=== PATIENT | female | born 1975 | race Caucasian/White ===

== ENCOUNTER 2019-05-13 11:16 | Outpatient (CLI) | payer OTHER, SELFPAY ==
--- NOTE | ~2019-05-13 | MMUS_ITS ---
EXAMINATION: MM diagnostic wandy BI w dhiraj, US axilla RT HISTORY: Palpable right breast lump TECHNIQUE: Additional 3-D tomosynthesis images of the breasts were performed and synthetic 2-D images were generated. CAD analysis was submitted and interpreted. High resolution right breast ultrasound was performed. COMPARISON: Comparison to multiple prior studies sequentially, with oldest reviewed study dated 08/08. FINDINGS: MAMMOGRAPHIC FINDINGS: The breasts are extremely dense, which lowers the sensitivity of mammography. No suspicious masses, c alcifications or architectural distortion in either breast to suggest malignancy. ULTRASOUND: Right axillary ultrasound: Normal heterogeneous echotexture without focal solid or cystic mass. IMPRESSION: 1. No evidence for malignancy in either breast. 2. Routine yearly screening mammogram and regular clinical breast examination are recommended. BI-RADS Category 1: Negative Reviewed, dictated and finalized at location A. IMPRESSION: 1. No evidence for malignancy in either breast. 2. Routine yearly screening mammogram and regular clinical breast examination a re recommended. BI-RADS Category 1: Negative
== END 2019-05-13 11:17 | disposition home or self-care (01) ==
LOC: ANHIMG 11:25
PROVIDERS: PCP Internal Medicine; Visit Provider Advanced Practice Midwife
DX: R59.0 Localized enlarged lymph nodes (principal)
CPT/HCPCS: 76882; 77062; 77066; G0279

== ENCOUNTER 2019-11-18 13:28 | Emergency (ER) | payer OTHER, SELFPAY ==
--- NOTE | ~2019-11-18 | CT_ITS ---
EXAMINATION: CT cervical spine wo con EXAM DATE: 11/18/2019 14:24 INDICATION: Initial encounter following injury, with pain of the cervical spine. TECHNIQUE: Spiral CT of the cervical spine was performed without contrast. Axial images were reviewe d. Coronal and sagittal reformatted images were also reviewed. The dose-length product (DLP) for thi s examination was 206.31 mGy-cm. The exposure was tailored according to patient size (auto mA exposu re control), and iterative reconstruction (ASIR) was used as additional dose reduction technique. ere is no prior study for comparison. FINDINGS: Congenital C1 posterior arch incomplete fusion. There is no evidence of acute cervical frac ture. The odontoid process is intact. Pre-dens space is normal. Prevertebral soft tissue is normal . There are no soft tissue abnormalities identified. There is no disc space widening or traumatic v ertebral body subluxation suspected. There is mild to moderate C5-6 and 6-7 disc disease and arthrop athy. The vertebral body and disc heights are otherwise well maintained. A detailed level by level e valuation of spondylosis can be added as addendum if requested. IMPRESSION: 1. No acute cervical fracture. 2. Mild to moderate lower cervical spondylosis. Reviewed, dictated and finalized at location B.
[2019-11-18 13:42] VITALS: BP 129/70; PULSE 81; RESP 18; TEMP 36.9; O2SAT 100
[2019-11-18 15:41] VITALS: BP 116/66; PULSE 70; RESP 16; TEMP 37.3; O2SAT 98
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
== END 2019-11-18 15:41 | disposition home or self-care (01) ==
PROVIDERS: Emergency Provider Emergency Medicine
DX: S16.1XXA Strain of muscle, fascia and tendon at neck level, initial encounter (principal); M47.812 Spondylosis without myelopathy or radiculopathy, cervical region; V43.52XA Car driver injured in collision with other type car in traffic accident, initial encounter
CPT/HCPCS: 72125; 81025; 99284; L0140

== ENCOUNTER 2020-04-15 10:04 | Emergency (ER) | payer OTHER, SELFPAY ==
[2020-04-15] VITALS (10 sets, daily range): BP systolic 130–150; BP diastolic 80–86; PULSE 82–90; RESP 11–19; TEMP 37.1; O2SAT 97–100
--- NOTE | 2020-04-15 10:18 | ECG_ITS ---
Measurements Intervals [place] Rate: 87 P: 81 NH: 142 QRS: 60 QRSD: 98 T: 20 QT: 362 QTc: 436 Interpretive Statements SINUS RHYTHM POSSIBLE LEFT ATRIAL ENLARGEMENT INCOMPLETE RIGHT BUNDLE BRANCH BLOCK BORDERLINE ST-T WAVE ABNORMALITY- ANT/INF LEADS BASELINE ARTIFACT- I, II, III, V4 BORDERLINE ECG Electronically Signed On 04-15-2020 10:30:25 FORMULA TECHNICIAN by Sean Russo D.O.
[2020-04-15] MEDS: SODIUM CHLORIDE 0.9% IV 1,000 ML 999 ML IV CONT (10:44)
[2020-04-15 10:57] LABS: Basophils Absolute Auto 0.1 K/mm3 (0.0-0.1); Basophils Percent Auto 0.9 % (0.2-1.2); Eosinophils Absolute Auto 0.3 K/mm3 (0-0.3); Eosinophils Percent Auto 3.7 % (0-4.4); Hematocrit 39.5 % (37.0-47.0); Hemoglobin 13.3 g/dL (12.0-15.0); Immature Granulocyte Absolute 0.01 K/mm3 (0.00-0.031); Immature Granulocyte Percent A 0.1 % (0-0.5); Lymphocytes Absolute Auto 1.27 K/mm3 (0.9-3.2); Mean Corpuscular HGB Conc 33.7 g/dl (32-36); Mean Corpuscular Hemoglobin 30.4 pg (26-34); Mean Corpuscular Volume 90.4 fl (80-100); Mean Platelet Volume 10.8 fl (7.4-10.4); Monocytes Absolute Auto 0.5 K/mm3 (0.1-0.6); Monocytes Percent Auto 6.8 % (2.6-8.5); Neutrophils Percent Auto 70.5 % (45.5-73.1); Platelet Count Result 250 k/mm3 (150-375); Red Blood Count 4.37 M/mm3 (4.2-5.4); Red Cell Distribution Width 12.3 % (11.5-14.5)
[2020-04-15 11:03] LABS: Add Urine Microscopic? YES; Appearance Urine Clear (Clear); Bilirubin Urine Negative (Negative); Blood Urine 2+ (Negative); Color Urine Straw (Yellow); Glucose Urine UA Negative (Negative); Ketones Urine Negative (Negative); Leukocyte Esterase Ur Negative LEU/UL (Negative); Nitrate Urine Negative (Negative); Protein Urine Negative (Negative); RBC Urine 0-2 /hpf (0-2); Specific Grav Ur 1.006 (1.001-1.035); Squamous Epithelial Cell Urine Few /hpf (Few); Transitional Epi Cells Urine Rare /hpf (None Seen); Urobilinogen Urine Negative mg/dL (<2.0)
[2020-04-15 11:06] LABS: Prothrombin Time 13.5 Seconds (11.1-14.7)
[2020-04-15 11:07] LABS: Partial Thromboplastin Time 28.1 SECONDS (22.3-36.8)
[2020-04-15 11:08] LABS: Alanine Aminotransferase 16 U/L (4-35); Albumin Level 4.2 g/dL (3.5-5.1); Alkaline Phosphatase 56 U/L (38-126); Anion Gap 6 mmol/L (8-16); Aspartate Amino Transferase 25 U/L (14-36); Bilirubin,Total 0.4 mg/dL (0.2-1.3); Blood Urea Nitrogen 12 mg/dL (7-17); Calcium 8.8 mg/dL (8.4-10.2); Carbon Dioxide 29 mmol/L (22-30); Chloride 105 mmol/L (98-107); Estimated CRCL calculation 74 ml/min; Estimated Glomerular Filt Rate > 60; Glucose 95 mg/dL (65-105); Potassium 3.5 mmol/L (3.4-5.0); Sodium 140 mmol/L (137-145)
--- NOTE | 2020-04-15 11:23 | ED.GENADULT ---
HPI - General Adult General Chief complaint: Arrhythmia/Palpitations Stated complaint: Palpatations Time Seen by Provider: 04/15/20 10:15 Source: patient Mode of arrival: ambulatory Limitations: no limitations History of Present Illness HPI narrative: Patient is a 44-year-old female who presented with an episode of feeling near syncopal pulled over felt like her heart was racing has history of V. tach is on medication for this specialists or outside at [facility] in [place] patient on arrival per EMS noting she is feeling much better patient notes that she did take migraine medication with caffeine in it this morning as a possible etiology became anxious and is also being treated for urinary tract infection. Patient on arrival is in no distress hemodynamically stable Related Data Home Medications Medication Instructions Recorded Confirmed diltiazem HCl 180 mg PO DAILY 11/18/19 11/18/19 cephalexin 500 mg PO Q8H 04/15/20 Allergies Allergy/AdvReac Type Severity Reaction Status Date / Time Sulfa (Sulfonamide Allergy Mild RASH Verified 04/15/20 10:12 Antibiotics) Review of Systems Review of Systems: All systems reviewed & are unremarkable except as noted in HPI and below PMFSH Past Medical History Medical History Hypertension Social History Social History Smoking status: Never smoker Gender identity (if verbalized by the patient): Female Exam Narrative: Exam Narrative: GENERAL: Well-appearing, well-nourished, and in no acute distress. HEAD: Normocephalic, atraumatic. EYES: PERRLA and EOMI. ENT: Nares clear, no rhinorrhea or epistaxis. Mucous membranes moist. CHEST: Clear to auscultation. No respiratory distress. No wheezes rales or rhonchi HEART: Regular rate and rhythm. No murmur heard. Normal peripheral pulses. ABDOMEN: Soft, mild epigastric tenderness on palpation no rebound or guarding, nondistended EXTREMITIES: Normal range of motion. No edema. SKIN: Warm, dry, no rash. NEURO: No focal deficits. Alert and oriented x3. Cranial nerves II through XII grossly intact PSYCH: Normal mood and affect. Course Course Emergency Course: Patient in the room in no distress aware of case findings treatment plan and diagnosis resting comfortably no high risk changes in the blood work or evaluation likely due to stimulant use with her Excedrin Migraine medication will discontinue using this and will follow up as instructed and will return if symptoms worsen Vital Signs Vital signs: Vital Signs Temperature 98.7 F 04/15/20 10:07 Pulse Rate 84 04/15/20 10:07 Respiratory Rate 16 04/15/20 10:07 Blood Pressure 130/85 04/15/20 10:07 Pulse Oximetry 100 04/15/20 10:07 Temperature 98.7 F 04/15/20 10:07 Pulse Rate 84 04/15/20 12:01 Respiratory Rate 19 04/15/20 12:01 Blood Pressure 135/86 04/15/20 12:01 Pulse Oximetry 98 04/15/20 12:01 Medical Decision Making Differential Diagnosis Differential Diagnosis: Patients EKGs and labs are without significant high risk changes. Cardiac risk factors were reviewed. Patient is felt likely to be low risk for ACS and reasonable for further risk stratification testing as an outpatient. Pain was not sudden or maximal in onset without tearing or ripping. quality. No other signs or symptoms to suggest aortic dissection. A low-risk Wells criteria is noted. PE is felt to be unlikely. No pneumonia or URI symptoms were seen on evaluation today. Patient is felt to be reasonable for continued evaluation as an outpatient. Vital Signs Vital Signs: Vital Signs Temperature 98.7 F 04/15/20 10:07 Pulse Rate 84 04/15/20 10:07 Respiratory Rate 16 04/15/20 10:07 Blood Pressure 130/85 04/15/20 10:07 Pulse Oximetry 100 04/15/20 10:07 Temperature 98.7 F 04/15/20 10:07 Pulse Rate 84 04/15/20 12:01 Respiratory Rate 19
[2020-04-15 11:54] LABS: Troponin I < 0.012 ng/mL (0.000-0.034)
== END 2020-04-15 12:52 | disposition home or self-care (01) ==
PROVIDERS: Emergency Medicine Emergency Medical Services; Emergency Provider Emergency Medicine
DX: R00.2 Palpitations (principal); I10 Essential (primary) hypertension
CPT/HCPCS: 36415; 80053; 81001; 84484; 85025; 85610; 85730; 93005; 96360; 96361; 99284; J7030

== ENCOUNTER 2020-07-30 16:52 | Emergency (ER) | payer OTHER, SELFPAY ==
[2020-07-30 16:59] VITALS: BP 124/68; PULSE 81; RESP 18; TEMP 37.4; O2SAT 99
--- NOTE | 2020-07-30 18:30 | ED.FEMALEGU ---
HPI - Female Genitourinary General Chief complaint: Urogenital-Female Stated complaint: UTI SYMPTOMS Time Seen by Provider: 07/30/20 17:07 Source: patient and RN notes reviewed Mode of arrival: ambulatory Limitations: no limitations History of Present Illness HPI Narrative: Patient presents today complaining of constant lower abdominal aching and a pinching sensation at her urethra. Symptoms have been present for over 1 week. Symptoms were improved while she was on her menstrual cycle during this period of time. Denies frequency, dysuria, low back pain, decreased urine output, hematuria. States this is the third episode similar to this that she has had. The first time was at the beginning of the pandemic, her urine was not tested at this time, but wished she was given a course of antibiotics for presumed UTI. States this did help with her symptoms. States she cannot remember what was done during the second episode of the symptoms. MD elicited complaint: pelvic pain Related Data Home Medications Medication Instructions Recorded Confirmed diltiazem HCl 180 mg PO DAILY 11/18/19 07/30/20 Allergies Allergy/AdvReac Type Severity Reaction Status Date / Time Sulfa (Sulfonamide Allergy Mild RASH Verified 07/30/20 17:12 Antibiotics) Review of Systems Review of Systems: Narrative: CONSTITUTIONAL: Denies body aches, fever, chills, or sweats. EYES: Denies visual changes, redness, or discharge. ENT: Denies rhinorrhea, congestion, sore throat, or otalgia. CARDIOVASCULAR: Denies chest pain, palpitations, or edema. RESPIRATORY: Denies cough or dyspnea. GASTROINTESTINAL: Denies abdominal pain, nausea, vomiting, or diarrhea. GENITOURINARY: Denies dysuria or hematuria.+ Pelvic pain, urethral irritation SKIN: Denies rash, itching, or wounds. MUSCULOSKELETAL: Denies back pain, joint pain, or myalgia. NEUROLOGIC: Denies headache, numbness, tingling, or weakness. PSYCH: Denies depression or anxiety. [facility] Past Medical History Medical History (Updated 07/30/20 @ 18:34 by Sabina Robert, DISULFURIZER TENDER, ) History of ventricular tachycardia Hypertension Social History Social History Smoking status: Never smoker Gender identity (if verbalized by the patient): Female Comments At time of signature, I have reviewed and agree with nursing past medical, surgical, social and family history unless otherwise noted. Please see nursing chart for further information. There is no relevant family history pertinent to the presenting complaint Exam Narrative: Exam Narrative: GENERAL: Well-appearing, well-nourished, and in no acute distress. HEAD: Normocephalic, atraumatic. EYES: EOMI. No redness or drainage. Conjunctivae normal. ENT: Mucous membranes pink and moist. NECK: Normal AROM. CHEST: No respiratory distress. Clear to auscultation. HEART: Regular rate and rhythm. No murmur appreciated. Normal peripheral pulses. ABDOMEN: Soft, nondistended, normal active bowel sounds. + Suprapubic tenderness.-CVAT MUSCULOSKELETAL: No bony tenderness. EXTREMITIES: Normal range of motion. No edema. SKIN: Warm, dry, no rash. Capillary refill normal. Normal skin turgor. NEURO: No focal deficits. Alert and oriented x3. Gait steady. PSYCH: Normal affect. No signs of depression or anxiety. Course Course Emergency Course: Patient just got off her menstrual cycle and has trace amount of blood in her UA, but no other inflammatory markers for UTI. Symptoms have been present for over a week and improved when she was on her menstrual cycle. This could suggest another problem other than a UTI. I will send her urine off for culture and we will contact her if it comes back positive, and antibiotics will be called in for her at that time if needed. Discussed follow-up with an PIPELINE INTEGRITY ENGINEER, and patient is agreeable to this plan. Vital Signs Vital signs: Vital Signs Temperature 99.3 F 07/30/20 16:59 Puls
== END 2020-07-30 17:25 | disposition home or self-care (01) ==
PROVIDERS: Emergency Provider Nurse Practitioner
DX: R10.31 Right lower quadrant pain (principal); R10.32 Left lower quadrant pain; I10 Essential (primary) hypertension
CPT/HCPCS: 81003; 87086; 99213; G0463

== ENCOUNTER 2021-02-04 07:45 | Outpatient (CLI) | payer OTHER, SELFPAY ==
--- NOTE | ~2021-02-04 | MM_ITS ---
EXAMINATION: MM screening wandy BI w dhiraj HISTORY: Screening TECHNIQUE: Craniocaudal and mediolateral oblique 3-D tomosynthesis images were obtained and synthetic 2-D images were generated. CAD analysis was submitted and interpreted. COMPARISON: Comparison to multiple prior studies sequentially, with oldest reviewed study dated [place] rison to multiple prior studies sequentially, with oldest reviewed study dated 08/08/2018. . BREAST PARENCHYMAL COMPOSITION: The breasts are heterogenously dense, which may obscure small masses FINDINGS: There is no evidence of suspicious mass, calcification, or architectural distortion to sugg est malignancy in either breast. There has been no suspicious interval change. IMPRESSION: 1. No mammographic evidence of malignancy. 2. Recommend routine screening mammography in one year. BI-RADS Category 1: Negative Reviewed, dictated and finalized at location A. TO DOOR SALES REPRESENTATIVE
== END 2021-02-04 07:46 | disposition home or self-care (01) ==
LOC: ANHIMG 07:48
PROVIDERS: PCP Internal Medicine; Visit Provider Advanced Practice Midwife
DX: Z12.31 Encounter for screening mammogram for malignant neoplasm of breast (principal)
CPT/HCPCS: 77063; 77067

== ENCOUNTER 2021-10-11 16:49 | Emergency (ER) | payer OTHER, SELFPAY ==
[2021-10-11 17:01] VITALS: BP 129/80; PULSE 75; RESP 16; TEMP 37.6; O2SAT 98
--- NOTE | 2021-10-11 17:48 | ED.FEMALEGU ---
HPI - Female Genitourinary General Chief complaint: Urogenital-Female Stated complaint: bladder infection Time Seen by Provider: 10/11/21 17:49 Source: patient, RN notes reviewed and old records reviewed Mode of arrival: ambulatory Limitations: no limitations History of Present Illness HPI Narrative: 46 year old female who presents to [facility] care with complaints of some suprapubic cramping since Sunday with twinge of discomfort with voiding with no frequency or urgency reported. Patient also states history of urine fibroids pushing on her bladder wonders if discomfort could be related. Patient reports that on Sunday she had headache, sore throat, low grade fevers, cough, and fatigue and spent most of weekend in bed, tested self for COVID twice both times negative with last test Sunday.Patient reports that those symptoms have improved since Sunday. Patient has used heating pad to her lower abdomen area but has not taken any OTC medications. MD elicited complaint: dysuria and other (supra pubic pressure, URI symptoms also) Pertinent past history: other (uterine fibroids) Onset (ago): day(s) (1) Location of symptoms: suprapubic Severity: mild Female Urogenital Radiation: Non-Radiating Severity scale (1-10): 2 Related Data Home Medications Medication Instructions Recorded Confirmed diltiazem HCl 180 mg 180 mg PO DAILY 11/18/19 10/11/21 capsule,extended release 24 hr Allergies Allergy/AdvReac Type Severity Reaction Status Date / Time Sulfa (Sulfonamide Allergy Mild RASH Verified 07/30/20 17:12 Antibiotics) Review of Systems Review of Systems: CONSTITUTIONAL: Positive for low grade fever, chills, or sweats. EYES: Denies visual changes, redness, or discharge. ENT: Positive rhinorrhea, minimal congestion, sore throat resolved, no otalgia. CARDIOVASCULAR: Denies chest pain, palpitations, or edema. RESPIRATORY: Occasional cough denies dyspnea. GASTROINTESTINAL: suprapubic pressure with twinge of discomfort with urination reported,no nausea, vomiting, or diarrhea.No CVA tenderness GENITOURINARY: twinge of dysuria no visible hematuria. SKIN: Denies rash or itching. MUSCULOSKELETAL: Denies back pain, joint pain, or myalgia. NEUROLOGIC: Denies headache, numbness, or weakness. PSYCHIATRIC: Denies anxiety or depression. All systems reviewed & are unremarkable except as noted in HPI and below PMFSH Past Medical History Medical History (Updated 10/11/21 @ 18:24 by Erma De Leon NP) History of ventricular tachycardia Hypertension Uterine fibroid Surgical History Surgical History (Updated 10/11/21 @ 18:23 by Erma De Leon NP) History of cardiac radiofrequency ablation Social History Social History (Updated 10/11/21 @ 18:23 by Erma De Leon NP) Smoking status: Never smoker Alcohol intake: current Alcohol use details: rare Substance use type: does not use Living arrangements: with family Gender identity (if verbalized by the patient): Female Comments At time of signature, agree with nursing past medical, surgical, social and family history. There is no relevant family history pertinent to the presenting complaint Exam Narrative: GENERAL: Well-appearing, well-nourished, and in no acute distress. HEAD: Normocephalic, atraumatic. EYES: PERRLA and EOMI. ENT: Nares clear, minimal clear rhinorrhea no epistaxis. Mucous membranes moist.TM's normal with good light reflex, throat pink with no lesions or exudates or tonsil swelling. NECK: Supple.no lymphadenopathy CHEST: Clear to auscultation. No respiratory distress. SAO2 98% on room air HEART: Regular rate and rhythm. No murmur heard. Normal peripheral pulses. ABDOMEN: Soft,suprapubic tenderness,minimal discomfort when urinates no hematuria, nondistended, normal active bowel sounds.No CVA tenderness EXTREMITIES: Normal range of motion. No edema. SKIN: Warm, dry, no rash. NEURO: No focal deficits. Alert and oriented x3. Course Cour
== END 2021-10-11 18:09 | disposition home or self-care (01) ==
LOC: EXPGOSH 16:52
PROVIDERS: Emergency Provider Registered Nurse
DX: N30.90 Cystitis, unspecified without hematuria (principal); I10 Essential (primary) hypertension
CPT/HCPCS: 81003; 87086; 99213; G0463

== ENCOUNTER 2022-04-10 10:23 | Emergency (ER) | payer OTHER, SELFPAY ==
--- NOTE | 2022-04-10 10:26 | ED.EAR ---
HPI - Ear Problem General Chief complaint: Ear Stated complaint: congestion, rt ear pain/drainage Time Seen by Provider: 04/10/22 10:26 Source: patient Mode of arrival: ambulatory Limitations: no limitations History of Present Illness HPI Narrative: Susana is a 46-year-old female patient presenting to clinic today with complaints nasal congestion and right ear pain since the beginning of March. She reports she is getting over COVID. States that she tested last week and was finally started test negative. Still has head congestion, ear pressure, and nonproductive barking cough. Nasal congestion is clear. No fever or chills recently. Related Data Home Medications Medication Instructions Recorded Confirmed diltiazem HCl 180 mg 180 mg PO DAILY 11/18/19 04/10/22 capsule,extended release 24 hr Allergies Allergy/AdvReac Type Severity Reaction Status Date / Time Sulfa (Sulfonamide Allergy Mild RASH Verified 04/10/22 10:30 Antibiotics) Review of Systems Review of Systems: Pertinent positives per HPI. Patient denies any fever, chills, rash, headache, visual changes, dizziness, shortness of breath, chest pain, palpitations, nausea, vomiting, diarrhea, constipation, abdominal pain, or any urinary issues. PMFSH Past Medical History Medical History History of ventricular tachycardia Hypertension Uterine fibroid Surgical History Surgical History History of cardiac radiofrequency ablation Social History Social History Smoking status: Never smoker Alcohol intake: current Alcohol use details: rare Substance use type: does not use Living arrangements: with family Gender identity (if verbalized by the patient): Female Comments At the time of my signature, I reviewed and agree with the nursing past medical, surgical, social, and family history. There is no relevant family history pertinent to the patient complaint. Exam Narrative: General: Well-developed, well nourished, in no apparent distress Head: Normocephalic, atraumatic Eyes: Pupils equally round and reactive to light bilaterally, EOM intact, sclera and conjunctive clear, no discharge, lids normal Ears: TMs intact and clear, ear canals clear, no drainage, grossly hearing normal. Nose: Nares patent, no discharge, no inflammation, no sinus tenderness. Mouth: Oral pharynx without lesions or masses, good dentition, MMM. Neck: Supple, trachea midline, no enlargement of anterior or posterior cervical nodes, no thyroid masses or goiter palpable. Cardio: Regular rate and rhythm, s1 and s2 normal, no murmur appreciated. Resp: Clear to auscultation bilaterally, no rhonchi, rales, wheezing or rubs Course Course Emergency Course: Portions of this record may have been created with voice recognition software. Level of Care: Express Care Visit Vital Signs Vital signs: Vital Signs Temperature 37.3 C 04/10/22 10:32 Pulse Rate 85 04/10/22 10:32 Respiratory Rate 16 04/10/22 10:32 Blood Pressure 128/79 04/10/22 10:32 Pulse Oximetry 99 04/10/22 10:32 Temperature 37.3 C 04/10/22 10:32 Pulse Rate 85 04/10/22 10:32 Respiratory Rate 16 04/10/22 10:32 Blood Pressure 128/79 04/10/22 10:32 Pulse Oximetry 99 04/10/22 10:32 Vital signs reviewed Medical Decision Making MDM Narrative Medical decision making narrative: At the time of visit patient is resting comfortably on exam table. Patient is just getting over COVID. I suspect patient has URI/postnasal drip/eustachian tube dysfunction. Prescription for prednisone was sent to the pharmacy and supportive measures were discussed with the patient she voiced understanding discharge instructions. Differential Diagnosis Differential Diagnosis: Otitis media, otitis tender, eustachian
[2022-04-10 10:32] VITALS: BP 128/79; PULSE 85; RESP 16; TEMP 37.3; O2SAT 99
== END 2022-04-10 10:45 | disposition home or self-care (01) ==
PROVIDERS: Emergency Provider Nurse Practitioner Family
DX: H69.93 Unspecified Eustachian tube disorder, bilateral (principal); J06.9 Acute upper respiratory infection, unspecified; R09.82 Postnasal drip; I10 Essential (primary) hypertension; Z86.16 Personal history of COVID-19
CPT/HCPCS: 99213; G0463

== ENCOUNTER 2022-06-23 08:12 | Outpatient (CLI) | payer OTHER, SELFPAY ==
--- NOTE | ~2022-06-23 | MM_ITS ---
EXAMINATION: MM screening wandy BI w dhiraj HISTORY: Screening mammogram TECHNIQUE: Craniocaudal and mediolateral oblique 3-D tomosynthesis images were obtained and synthetic 2-D images were generated. Bilateral rotated lateral CC views. CAD analysis was submitted and interp reted. COMPARISON: 02/04/2021, 05/13/2019, 08/08/2018 bilateral screening mammogram examinations BREAST PARENCHYMAL COMPOSITION: The breasts are heterogeneously dense, which may obscure small masses . FINDINGS: There is no evidence of suspicious mass, calcification, or architectural distortion to sugg est malignancy in either breast. There has been no suspicious interval change. IMPRESSION: 1. No mammographic evidence of malignancy. 2. Recommend routine screening mammography in one year. BI-RADS Category 1: Negative Reviewed, dictated and finalized at location A.
== END 2022-06-23 08:13 | disposition home or self-care (01) ==
LOC: ANHIMG 08:17
PROVIDERS: PCP Internal Medicine; Visit Provider Nurse Practitioner
DX: Z12.31 Encounter for screening mammogram for malignant neoplasm of breast (principal)
CPT/HCPCS: 77063; 77067

== ENCOUNTER 2023-11-23 09:50 | Outpatient (CLI) | payer OTHER, SELFPAY ==
--- NOTE | ~2023-11-23 | MM_ITS ---
EXAMINATION: MM screening wandy BI w dhiraj HISTORY: Screening TECHNIQUE: Craniocaudal and mediolateral oblique 3-D tomosynthesis images were obtained and synthetic 2-D images were generated. CAD analysis was submitted and interpreted. COMPARISON: Comparison to multiple prior studies sequentially, with oldest reviewed study dated 08/08. BREAST PARENCHYMAL COMPOSITION: Dense: The breasts are extremely dense, which lowers the sensitivity of mammography. FINDINGS: There is no evidence of suspicious mass, calcification, or architectural distortion to sugg est malignancy in either breast. There has been no suspicious interval change. IMPRESSION: 1. No mammographic evidence of malignancy. 2. Recommend routine screening mammography in one year. BI-RADS Category 1: Negative Reviewed, dictated and finalized at location B.
== END 2023-11-23 09:51 | disposition home or self-care (01) ==
LOC: ANHIMG 09:53
PROVIDERS: PCP Internal Medicine; Visit Provider Student in an Organized Health Care Education/Training Program
DX: Z12.31 Encounter for screening mammogram for malignant neoplasm of breast (principal)
CPT/HCPCS: 77063; 77067

== ENCOUNTER 2025-01-30 09:56 | Outpatient (CLI) | payer OTHER, SELFPAY ==
--- NOTE | ~2025-01-30 | MM_ITS ---
EXAMINATION: MM screening wandy BI w dhiraj HISTORY: Screening. TECHNIQUE: Craniocaudal and mediolateral oblique 3-D tomosynthesis images were obtained and synthetic 2-D images were generated. CAD analysis was submitted and interpreted. COMPARISON: 2023, 2022, and 2020. BREAST PARENCHYMAL COMPOSITION: Dense: The breasts are heterogeneously dense FINDINGS: No suspicious masses are seen. There are no suspicious calcifications. No unexplained architectural distortion is seen. There are no skin or nipple abnormalities identified. There is no adenopathy seen on the images submitted. IMPRESSION: No mammographic or sonographic evidence to suggest malignancy is seen. The patient may return to screening mammography as per ACR guidelines. BI-RADS 1 - Negative. Reviewed, dictated and finalized at location B. RINTENDENT TRANSPORTATION IMPRESSION: No mammographic or sonographic evidence to suggest malignancy is seen. The marielos ent may return to screening mammography as per ACR guidelines. BI-RADS 1 - Negative.
== END 2025-01-30 09:57 | disposition home or self-care (01) ==
LOC: ANHFOHIMG 09:58
PROVIDERS: PCP Internal Medicine; Visit Provider Student in an Organized Health Care Education/Training Program
DX: Z12.31 Encounter for screening mammogram for malignant neoplasm of breast (principal)
CPT/HCPCS: 77063; 77067